=== PATIENT | female | born 2000 | race Two or more races ===

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

== ENCOUNTER 2022-08-18 18:35 | Emergency (ER) | payer OTHER ==
[~2022-08-18] VITALS: Ht 157.5 cm; Wt 81.6 kg
--- NOTE | 2022-08-18 19:41 | NUR ---
Placed in 2b at this time.
--- NOTE | 2022-08-18 20:09 | NUR ---
Dr Oneal at bedside MSE in progress
[2022-08-18] MEDS ORDERED: ONDANSETRON 4 MG/2 ML VIAL IV ONE (20:15)
[2022-08-18] MEDS ORDERED: HYDROMORPHONE 1 MG/1 ML DISP.SYRIN IV ONE (20:15)
[2022-08-18] MEDS ORDERED: IV NORMAL SALINE 1000 ML BAG IV ONE (20:15)
[2022-08-18] MEDS ORDERED: ONDANSETRON 4 MG/2 ML VIAL ONE (20:16)
[2022-08-18] MEDS ORDERED: HYDROMORPHONE 1 MG/1 ML DISP.SYRIN ONE (20:16)
[2022-08-18 20:36] LABS: HEMATOCRIT 42.2 % (31.2-41.9); MEAN CORPUSCULAR HEMOGLOBIN 28.6 uug (24.7-32.8); MEAN CORPUSCULAR VOLUME 86.3 fL (75.5-95.3); PLATELET COUNT (AUTO) 230 K/uL (179-408)
[2022-08-18 20:36] LABS: *BILIRUBIN,URIN NEGATIVE (NEGATIVE); *BLOOD, URINE NEGATIVE (NEGATIVE); *CLARITY,URINE CLEAR (CLEAR); *COLOR,URINE YELLOW (YELLOW); *KETONES,URINE 2+ (NEGATIVE); *UROBILINOGEN,URINE 0.2 E.U./dl (NORMAL); LEUKOCYTE ESTERASE ,URINE NEGATIVE (NEGATIVE); NITRITE, URINE NEGATIVE (NEGATIVE); UGLUCOSE NEGATIVE (NEGATIVE)
[2022-08-18 20:45] LABS: *URINE HCG, QUAL NEGATIVE (NEGATIVE)
[2022-08-18 20:50] LABS: CREATININE 0.7 mg/dL (0.6-1.3); POTASSIUM 3.7 mmol/L (3.5-5.1)
[2022-08-18 20:55] LABS: BILIRUBIN,DIRECT 0.1 mg/dL (0.0-0.2); BILIRUBIN,TOTAL 0.8 mg/dL (0.2-1.0)
[2022-08-18] MEDS ORDERED: HYDR-3972 PO (21:22)
[2022-08-18] MEDS ORDERED: PROC5TAB56 PO (21:22)
[2022-08-18 21:34] VITALS: BP 115/66
--- NOTE | 2022-08-18 21:34 | NUR ---
Patient discharged to home in stable condition. Written and verbal after care instructions given. Patient verbalizes understanding of instructions. Stressed follow up or return to ER for worsening s/s. Patient is a/ox4, NAD noted. patient is ambulatory with steady gait, accompanied by her mother
== END 2022-08-18 21:35 | disposition home or self-care (01) ==
LOC: ER 18:37
DX: A08.4 Viral intestinal infection, unspecified (principal); E86.0 Dehydration
CPT/HCPCS: 99284; 96374; 96361; 96375; 80076; 80048; 81001; 84703; 85025; 36415; J2405; J1170; J7040; A4663

== ENCOUNTER 2023-08-13 11:49 | Emergency (ER) | payer OTHER ==
[~2023-08-13] VITALS: Ht 154.9 cm; Wt 77.1 kg
[~2023-08-13 11:49] MED LIST: HYDR-3972 PO; PROC5TAB56 PO
[2023-08-13] MEDS ORDERED: diphenhydrAMINE 50 MG/1 ML VIAL ONE (13:04)
[2023-08-13] MEDS ORDERED: METOCLOPRAMIDE HCL 10 MG/2 ML VIAL ONE (13:04)
[2023-08-13] MEDS: diphenhydrAMINE 50 MG/1 ML VIAL IM ONE (13:20)
[2023-08-13] MEDS: METOCLOPRAMIDE HCL 10 MG/2 ML VIAL IM ONE (13:20)
[2023-08-13 14:28] LABS: *URINE HCG, QUAL NEGATIVE (NEGATIVE)
[2023-08-13 15:10] VITALS: BP 122/86; TEMP 97.9; O2SAT 99
== END 2023-08-13 15:27 | disposition home or self-care (01) ==
LOC: ER 11:49
DX: B34.9 Viral infection, unspecified (principal); R10.2 Pelvic and perineal pain; Z79.899 Other long term (current) drug therapy; Z20.822 Contact with and (suspected) exposure to COVID-19
CPT/HCPCS: 99284; 87426; 87804 ×2; 84703; 96372 ×2; 87420; J1200; J2765; A4606; A4663

== ENCOUNTER 2025-04-15 17:04 | Emergency (ER) | payer MEDICAID, OTHER ==
[~2025-04-15] VITALS: Ht 160 cm; Wt 79.4 kg
[2025-04-15 18:04] LABS: PLATELET COUNT (AUTO) 201 K/uL (179-408); RED BLOOD CELL COUNT(AUTO) 4.34 MIL/uL (3.63-4.92); RED CELL DISTRIBUTION WIDTH 13.3 % (12.3-17.7); WHITE BLOOD COUNT (AUTO) 5.7 K/uL (3.8-11.8)
[2025-04-15 18:19] LABS: ASPARTATE AMINOTRANSFERASE 8 U/L (15-37); CREATININE 0.5 mg/dL (0.6-1.3); SODIUM SERUM 140 mmol/L (136-145); TOTAL PROTEIN, SERUM 7.0 g/dL (6.4-8.2); UREA NITROGEN, BLOOD 15 mg/dL (7-18)
[2025-04-15 18:22] LABS: *BILIRUBIN,URIN NEGATIVE (NEGATIVE); *BLOOD, URINE NEGATIVE (NEGATIVE); *CLARITY,URINE CLEAR (CLEAR); *COLOR,URINE LIGHT YELLOW (YELLOW); *KETONES,URINE 1+ (NEGATIVE); *PROTEIN,URINE NEGATIVE (NEGATIVE); *URINE HCG, QUAL POSITIVE (NEGATIVE); *UROBILINOGEN,URINE 0.2 E.U./dl (NORMAL); LEUKOCYTE ESTERASE ,URINE NEGATIVE (NEGATIVE); NITRITE, URINE NEGATIVE (NEGATIVE); UGLUCOSE NEGATIVE (NEGATIVE)
[2025-04-15 18:38] LABS: SQUAMOUS EPITHELIAL CELL,UR MODERATE /HPF (NONE SEEN)
[2025-04-15 18:49] LABS: PREGNANCY TEST SERUM QUAN 742 miul/L (0-6)
[2025-04-15 19:00] VITALS: BP 129/75
[2025-04-15 19:29] VITALS: BP 131/71; O2SAT 98
== END 2025-04-15 19:27 | disposition left against medical advice (07) ==
LOC: ER 17:11
DX: O03.9 Complete or unspecified spontaneous abortion without complication (principal)
CPT/HCPCS: 36415; 76856; 84703; 85025; 85730; 86850; 86900; 86901; A4606; A4663